=== PATIENT | male | born 1975 | race Caucasian/White ===

== ENCOUNTER → 2017-02-07 | Outpatient (CLI) | payer BC ==
--- NOTE | 2017-02-07 14:11 | CT ---
EXAMINATION TYPE: CT abdomen pelvis w con DATE OF EXAM: 02/07/2017 COMPARISON: NONE HISTORY: Abdomen pain and bloating CT DLP: 1771.8 mGycm CONTRAST: CT scan of the abdomen and pelvis is performed with Oral Contrast and with IV Contrast, patient injec fely with 100 mL of Omnipaque 300. FINDINGS: LUNG BASES-: No visible nodule. No infiltrate. LIVER/GB: No calcified gallstones. No space occupying hepatic lesion. Mild hepatic steatosis. Bili deniz tree is of normal caliber. PANCREAS: No inflammation. No distinct mass. SPLEEN: No splenic enlargement. No lesion seen. ADRENALS: No nodule. No thickening. KIDNEYS/BLADDER: No hydronephrosis. No nephrolithiasis. No disctinct renal mass. Urinary bladder g rossly unremarkable. BOWEL: Wall thickening of the right hemicolon may reflect colitis. The remainder of the colon is unre markable. Normal appendix. No free air or abscess. GENITAL ORGANS: No gross abnormality. LYMPH NODES: No greater than 1cm abdominal or pelvic lymph nodes are appreciated. AORTA: No significant abnormality. OSSEOUS STRUCTURES: No significant abnormality is seen. OTHER: No significant additional abnormality is seen. IMPRESSION: 1. Thickening right hemicolon may reflect colitis. Correlate clinically. 2. Mild hepatic steatosis.
== END | disposition home or self-care (01) ==
LOC: RADCTMAIN 11:58
PROVIDERS: ATTEND Internal Medicine
DX: K76.0 Fatty (change of) liver, not elsewhere classified (principal)
CPT/HCPCS: 74177; Q9967

== ENCOUNTER → 2018-02-27 | Outpatient (CLI) | payer BC ==
--- NOTE | 2018-02-27 15:54 | CONS ---
CONSULTATION Consultation note for chronic fatigue and sleepiness. PCP: Dr. Peterson. A 42-year-old male patient with known history of depression since age of 17, currently on a combination of Prozac and Abilify and Wellbutrin. The patient is coming in to be evaluated for chronic excessive fatigue and sleepiness and been going on for the past 10 to 15 years. He snores, not sure if he quits breathing. Does have a bed partner. No insomnia. 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 He works between 3:00 pm and 11:00 pm. He goes to bed around 2:00 am, wakes up at noon time and he is not refreshed. No substance abuse. No alcoholism. No history of any chronic illnesses such as diabetes or kidney disease. No history of hypothyroidism. He has no nocturia. No grinding of the teeth. No restlessness in lower extremities. No sleep paralysis. No hallucinations or cataplexy. No history of any motor vehicle accident because of feeling drowsy or sleepy. PAST MEDICAL HISTORY: Depression. SURGICAL HISTORY: Negative. DRUG ALLERGIES: Not known. OUTPATIENT MEDICATION: Includes Prozac, Wellbutrin and Abilify. SOCIAL HISTORY: Nonsmoker. No history of alcohol. No history of IV drugs. FAMILY HISTORY: Father has obstructive sleep apnea. REVIEW OF SYSTEMS: 12-point review of system was done. Positive findings are mentioned in history of present illness. PHYSICAL EXAMINATION: BP is 138/89, pulse 71, respirations 16, temperature 97.7, saturation 97% on room air. Weight is 225, height 5 feet 9 inches, Wheaton score of 12. BMI 33.2. Neck size 17.5 inches. GENERAL APPEARANCE: Calm, comfortable. HEAD: Atraumatic, normocephalic. NECK: Short, supple. Mallampati Class 1. There is no goiter or neck mass. LUNGS: Clear to auscultation. HEART: Sounds regular rhythm. Normal S1, S2. No S3. No murmurs. ABDOMEN: Soft, nontender. No organomegaly. EXTREMITIES: No edema. No cyanosis or clubbing. IMPRESSION: 1. Excessive fatigue with some degree of sleepiness. Wheaton score of 12. Unclear if this is a manifestation obstructive sleep apnea. Will do further investigation. 2. Chronic depression. PLAN: 1. Proceed with a polysomnogram. 2. Will discuss the results once available and will make further recommendations accordingly. MMODL / IJN: [id number] /
== END | disposition home or self-care (01) ==
LOC: SLEEP 11:26
PROVIDERS: ATTEND Internal Medicine Critical Care Medicine
DX: G47.9 Sleep disorder, unspecified (principal); R53.83 Other fatigue; F32.9 Major depressive disorder, single episode, unspecified; Z79.899 Other long term (current) drug therapy
CPT/HCPCS: 99211

== ENCOUNTER 2019-07-04 20:52 | Emergency (ER) | payer BC ==
[2019-07-04 20:56] VITALS: RESP 20; TEMP 98.8
--- NOTE | 2019-07-04 21:51 | ED ---
Abdominal Pain HPI - General Chief Complaint: Abdominal Pain Stated Complaint: Abd Pain Time Seen by Provider: 07/04/19 21:02 Source: patient Mode of arrival: ambulatory Limitations: no limitations - History of Present Illness Initial Comments: Patient is a 43-year-old male presenting to the emergency department with a chief complaint of abdominal pain. Patient reports his symptoms began about 3 weeks ago with on and off nausea vomiting and diarrhea. He states the abdominal pain is located in the epigastric and left upper quadrant region without any radiation. She reports the pain is not postprandial. He states that he went to an urgent care was given Pepcid for possible concern of acid reflux. Patient reports some improvement in symptoms although no resolution. Patient went to his primary care was scheduled to have an upper GI scope in the next month. Patient denies any night sweats fevers but does report chills. Denies urinary symptoms. Denies hematuria, hematochezia or melena. Denies hematemesis or hemoptysis. Denies cough chest pain shortness of breath. No history of abdominal surgeries. Patient reports eating late at night and drinks a lot of pop. - Related Data Previous Rx's Medication Instructions Recorded Omeprazole [PriLOSEC] 10 mg PO DAILY #30 capsule. 07/04/19 Allergies Allergy/AdvReac Type Severity Reaction Status Date / Time sulfamethoxazole Allergy Nausea & Verified 07/04/19 20:56 [From Bactrim] Vomiting & Diarrhea trimethoprim [From Bactrim] Allergy Nausea & Verified 07/04/19 20:56 Vomiting & Diarrhea Review of Systems ROS Statement: Those systems with pertinent positive or pertinent negative responses have been documented in the HPI. ROS Other: All systems not noted in ROS Statement are negative. Past Medical History Past Medical History: No Reported History History of Any Multi-Drug Resistant Organisms: None Reported Past Surgical History: No Surgical Hx Reported Past Psychological History: Anxiety, Depression Smoking Status: Current every day smoker Past Alcohol Use History: None Reported Past Drug Use History: Marijuana General Exam Limitations: no limitations General appearance: alert, in no apparent distress Head exam: Present: atraumatic, normocephalic, normal inspection Eye exam: Present: normal appearance, PERRL, EOMI Pupils: Present: normal accommodation ENT exam: Present: normal exam, normal oropharynx, mucous membranes moist, TM's normal bilaterally, normal external ear exam Neck exam: Present: normal inspection, full ROM Respiratory exam: Present: normal lung sounds bilaterally Cardiovascular Exam: Present: regular rate, normal rhythm, normal heart sounds GI/Abdominal exam: Present: soft, tenderness (Epigastric and left upper quad rant), normal bowel sounds. Absent: distended, guarding, rebound, rigid, mass, bruit Extremities exam: Present: normal inspection, full ROM Back exam: Present: normal inspection, full ROM. Absent: CVA tenderness (R), CVA tenderness (L) Neurological exam: Present: alert, oriented X3 Psychiatric exam: Present: normal affect, normal mood Skin exam: Present: warm, dry, intact, normal color Course Vital Signs 07/04/19 07/04/19 20:53 23:11 Temperature 98.8 F Pulse Rate 79 73 Respiratory 20 20 Rate Blood Pressure 139/90 145/97 O2 Sat by Pulse 98 99 Oximetry Medical Decision Making - Medical Decision Making Patient is a 43-year-old male presenting to the emergency department with a chief complaint of abdominal pain. His been having nausea vomiting and diarrhea on and off for about 2-3 weeks. Abdominal pain is also present in the epigastric left upper quadrant. On initial evaluation patient reports the pain has subsided from earlier today. On exam he does have some epigastric left upper quadrant tenderness. No CVA tenderness. No urinary symptoms. UA is unremarkable. CBC shows no signs of leukocytosis. CMP unremarkable. Patient was given fluids, Zofran and Protonix and Toradol. Reevaluation patient has improvement in his symptoms and at this point he only feels slight discomfort but no more pain. I suspect the patient has acid reflux causing his symptoms. Patient previously tried a 14 day course of [id number] omeprazole and states there was improvement in symptoms but they returned after he stopped taking the medication. Patient was given a prescription for 30 days of omeprazole. Patient also advised not to eat or drink late at night. He was also advised to avoid eating or drinking any acidic foods or drinks. Patient noted he has a upper GI scope was scheduled next month. Strict return parameters were thoroughly discussed with patient was understanding and agreeable. Patient advised to continue with his scheduled testing appointment. Case discussed with physician. - Lab Data Result diagrams: 07/04/19 21:46 07/04/19 21:46 Lab Results 12/12/19 12/12/19 12/12/19 Range/Units 21:46 21:46 21:46 WBC 10.0 (3.8-10.6) k/uL RBC 4.43 (4.30-5.90) m/uL Hgb 13.2 (13.0-17.5) gm/dL Hct 38.9 L (39.0-53.0) % MCV 87.9 (80.0-100.0) fL MCH 29.8 (25.0-35.0) pg MCHC 33.9 (31.0-37.0) g/dL RDW 12.6 (11.5-15.5) % Plt Count 210 (150-450) k/uL Neutrophils % 84 % Lymphocytes % 11 % Monocytes % 3 % Eosinophils % 1 % Basophils % 0 % Neutrophils # 8.4 H (1.3-7.7) k/uL Lymphocytes # 1.1 (1.0-4.8) k/uL Monocytes # 0.3 (0-1.0) k/uL Eosinophils # 0.1 (0-0.7) k/uL Basophils # 0.0 (0-0.2) k/uL Sodium 142 (137-145) mmol/L Potassium 4.1 (3.5-5.1) mmol/L Chloride 108 H (98-107) mmol/L Carbon Dioxide 23 (22-30) mmol/L Anion Gap 11 mmol/L BUN 15 (9-20) mg/dL Creatinine 1.05 (0.66-1.25) mg/dL Est GFR (CKD-EPI)AfAm >90 (>60 ml/min/1.73 sqM) Est GFR (CKD-EPI)NonAf 88 (>60 ml/min/1.73 sqM) Glucose 87 (74-99) mg/dL Calcium 10.3 H (8.4-10.2) mg/dL Total Bilirubin 0.5 (0.2-1.3) mg/dL AST 29 (17-59) U/L ALT 36 (4-49) U/L Alkaline Phosphatase 89 (38-126) U/L Total Protein 8.4 H (6.3-8.2) g/dL Albumin 5.3 H (3.5-5.0) g/dL Amylase 56 (30-110) U/L Lipase 161 (23-300) U/L Urine Color Yellow Urine Appearance Clear (Clear) Urine pH 6.0 (5.0-8.0) Ur Specific [place] 1.024 (1.001-1.035) Urine Protein 1+ H (Negative) Urine Glucose (UA) Negative (Negative) Urine Ketones 1+ H (Negative) Urine Blood Negative (Negative) Urine Nitrite Negative (Negative) Urine Bilirubin Negative (Negative) Urine Urobilinogen <2.0 (<2.0) mg/dL Ur Leukocyte Esterase Negative (Negative) Urine RBC 1 (0-5) /hpf Urine WBC 1 (0-5) /hpf Urine Mucus Many H (None) /hpf Urine Sperm Occasional H (None) /hpf Disposition Clinical Impression: Abdominal pain Disposition: HOME SELF-CARE Condition: Stable Instructions (If sedation given, give patient instructions): Abdominal Pain (ED) Additional Instructions: Please follow up with her primary care. Please go to your scheduled upper GI test. Avoid eating late at night. Please take prescribed medication as directed. Avoid eating acidic food. Prescriptions: Omeprazole [PriLOSEC] 10 mg PO DAILY #30 capsule.dr Is patient prescribed a controlled substance at d/c from ED?: No Referrals: Stuart Peterson MD [Primary Care Provider] - 1-2 days Time of Disposition: 23:04
[2019-07-04] MEDS: SODIUM CHLORIDE 0.9% 1,000 ML IV STA (21:53)
[2019-07-04 22:01] LABS: Basophils % (A) 0 %; Eosinophils # (A) 0.1 k/uL (0-0.7); Eosinophils % (A) 1 %; HCT 38.9 % (39.0-53.0); HGB 13.2 gm/dL (13.0-17.5); Lymphocytes # (A) 1.1 k/uL (1.0-4.8); Lymphocytes % (A) 11 %; MCH 29.8 pg (25.0-35.0); MCHC 33.9 g/dL (31.0-37.0); MCV 87.9 fL (80.0-100.0); Mean Platelet Volume 8.7; Monocytes # (A) 0.3 k/uL (0-1.0); Monocytes % (A) 3 %; Neutrophils # (A) 8.4 k/uL (1.3-7.7); Neutrophils % (A) 84 %; Platelet Count 210 k/uL (150-450); RBC 4.43 m/uL (4.30-5.90); RDW 12.6 % (11.5-15.5)
[2019-07-04 22:07] LABS: Appearance,Urine Clear (Clear); Bilirubin,Urine Negative (Negative); Blood,Urine Negative (Negative); Color,Urine Yellow; Glucose,Urine (UA) Negative (Negative); Ketones,Urine 1+ (Negative); Leukocyte Esterase,Urine Negative (Negative); Mucus,Urine Many /hpf; Nitrite,Urine Negative (Negative); Protein,Urine 1+ (Negative); RBC,Urine 1 /hpf (0-5); Specific Gravity,Urine 1.024 (1.001-1.035); Sperm,Urine Occasional /hpf; Urobilinogen,Urine <2.0 mg/dL (<2.0)
[2019-07-04 22:18] LABS: ALT 36 U/L (4-49); AST 29 U/L (17-59); African American GFR (CKD) >90 (>60 ml/min/1.73 sqM); Albumin 5.3 g/dL (3.5-5.0); Alkaline Phosphatase 89 U/L (38-126); Amylase 56 U/L (30-110); Anion Gap 11 mmol/L; Blood Urea Nitrogen 15 mg/dL (9-20); Calcium 10.3 mg/dL (8.4-10.2); Carbon Dioxide 23 mmol/L (22-30); Chloride 108 mmol/L (98-107); Glucose 87 mg/dL (74-99); Non-African American GFR(CKD) 88 (>60 ml/min/1.73 sqM); Potassium 4.1 mmol/L (3.5-5.1); Sodium 142 mmol/L (137-145); Total Bilirubin 0.5 mg/dL (0.2-1.3); Total Protein 8.4 g/dL (6.3-8.2)
[2019-07-04] MEDS: KETOROLAC 30 MG/ML 1 ML VIAL IVP STA (22:19)
[2019-07-04] MEDS: PANTOPRAZOLE 40 MG/10 ML VIAL IVP STA (22:19)
[2019-07-04] MEDS: DICYCLOMINE 10 MG/ML 2 ML AMP IM STA (22:19)
[2019-07-04 23:12] VITALS: BP 145/97; PULSE 73
== END 2019-07-04 23:14 | disposition home or self-care (01) ==
LOC: EC 20:52
DX: R10.13 Epigastric pain (principal); R10.12 Left upper quadrant pain; R11.2 Nausea with vomiting, unspecified; R19.7 Diarrhea, unspecified; R68.83 Chills (without fever); F17.200 Nicotine dependence, unspecified, uncomplicated; Z88.2 Allergy status to sulfonamides
CPT/HCPCS: 36415; 80053; 82150; 83690; 85025; 81001; 99284; 96374; 96375; 96361; 96372; J0500; J1885; C9113

== ENCOUNTER → 2021-05-27 | Outpatient (CLI) | payer OTHER ==
--- NOTE | 2021-05-27 12:52 | US ---
EXAMINATION TYPE: US abdomen complete DATE OF EXAM: 05/27/2021 COMPARISON: NONE CLINICAL HISTORY: 45-year-old male K21.9 GERD without esophagitis. Epigastric pain, nausea, GERD TECHNIQUE: Multiple sonographic images of the abdomen are obtained. FINDINGS: EXAM MEASUREMENTS: Liver Length: 15.9 cm Gallbladder Wall: 0.3 cm CBD: 0.5 cm Spleen: 12.1 cm Right Kidney: 11.1 x 4.6 x 4.7 cm Left Kidney: 11.5 x 5.5 x 5.4 cm Pancreas: Tail obscured by overlying bowel gas. Visualized portions within normal limits. Liver: Increased echogenicity. No focal lesion seen. Gallbladder: no evidence of stones Evidence for sonographic Wan's sign: no CBD: wnl as visualized Spleen: wnl Kidneys: No hydronephrosis. Upper IVC: wnl Abd Aorta: wnl IMPRESSION: 1. Mild to moderate hepatic steatosis. 2. No gallstones or biliary ductal dilatation.
== END | disposition home or self-care (01) ==
LOC: RADUSWWP 09:25
PROVIDERS: ATTEND Internal Medicine
DX: K76.0 Fatty (change of) liver, not elsewhere classified (principal); K21.9 Gastro-esophageal reflux disease without esophagitis
CPT/HCPCS: 76700

== ENCOUNTER → 2022-04-05 | Outpatient (CLI) | payer OTHER ==
[2022-04-05 15:41] LABS: Basophils # (A) 0.1 k/uL (0-0.2); Basophils % (A) 1 %; Eosinophils # (A) 0.3 k/uL (0-0.7); Eosinophils % (A) 3 %; HGB 14.6 gm/dL (13.0-17.5); Lymphocytes # (A) 1.6 k/uL (1.0-4.8); Lymphocytes % (A) 18 %; MCH 30.8 pg (25.0-35.0); MCHC 33.9 g/dL (31.0-37.0); Mean Platelet Volume 9.2; Monocytes # (A) 0.3 k/uL (0-1.0); Monocytes % (A) 4 %; Neutrophils # (A) 6.4 k/uL (1.3-7.7); Neutrophils % (A) 73 %; Platelet Count 250 k/uL (150-450); RBC 4.73 m/uL (4.30-5.90); RDW 13.5 % (11.5-15.5); WBC 8.7 k/uL (3.8-10.6)
[2022-04-06 05:20] LABS: ALT 21 U/L (10-49); AST 19 U/L (14-35); African American GFR (CKD) 93.5 (60.0-200.0); Albumin 5.1 g/dL (3.8-4.9); Albumin/Globulin Ratio 2.13 (1.60-3.17); Alkaline Phosphatase 96 U/L (41-126); BUN/Creat Ratio 12.36 Ratio (12.00-20.00); Blood Urea Nitrogen 13.6 mg/dL (9.0-27.0); Calcium 10.1 mg/dL (8.7-10.3); Carbon Dioxide 21.8 mmol/L (20.0-27.5); Chloride 103 mmol/L (96-109); Globulin 2.4 g/dL (1.6-3.3); Glucose 107 mg/dL (70-110); Non-African American GFR(CKD) 80.6 (60.0-200.0); Potassium 5.2 mmol/L (3.5-5.5); Sodium 141 mmol/L (135-145); Total Protein 7.5 g/dL (6.2-8.2)
[2022-04-06 05:21] LABS: Chol/HDL Ratio 7.53 Ratio
== END | disposition home or self-care (01) ==
LOC: LABWHC1 14:50
PROVIDERS: ATTEND Internal Medicine
DX: I10 Essential (primary) hypertension (principal); F32.A Depression, unspecified
CPT/HCPCS: 36415; 80053; 80061; 80178; 82088; 82533; 83721; 84244; 84443; 85025

== ENCOUNTER → 2023-09-14 | Outpatient (CLI) | payer OTHER ==
[2023-09-14 18:51] LABS: Basophils # (A) 0.07 X 10*3/uL (0.00-0.10); Basophils % (A) 0.9 %; Eosinophils # (A) 0.24 X 10*3/uL (0.04-0.35); HCT 39.1 % (39.6-50.0); HGB 13.3 g/dL (13.0-17.0); Lymphocytes # (A) 1.92 X 10*3/uL (0.90-5.00); Lymphocytes % (A) 23.6 %; MCH 30.6 pg (27.0-32.0); MCV 90.1 FL (80.0-97.0); Mean Platelet Volume 11.1 FL (9.5-12.2); Monocytes # (A) 0.59 X 10*3/uL (0.20-1.00); Monocytes % (A) 7.3 %; NRBC Per 100 WBC 0 X 10*3/uL (0.00-0.01); Neutrophils # (A) 5.28 X 10*3/uL (1.80-7.70); Neutrophils % (A) 64.8 %; Platelet Count 238 X 10*3/uL (140-440); RBC 4.34 X 10*6/uL (4.40-5.60); RDW 12.7 % (11.5-14.5); WBC 8.13 X 10*3/uL (4.50-10.00)
[2023-09-14 22:34] LABS: BUN/Creat Ratio 8.08 Ratio (12.00-20.00); Blood Urea Nitrogen 9.7 mg/dL (9.0-27.0); Chloride 106 mmol/L (96-109); Chol/HDL Ratio 5.85 Ratio; Glucose 95 mg/dL (70-110); Potassium 4.3 mmol/L (3.5-5.5); Sodium 142 mmol/L (135-145)
[2023-09-14 22:35] LABS: ALT 25 U/L (10-49); AST 20 U/L (14-35); Albumin 4.7 g/dL (3.8-4.9); Albumin/Globulin Ratio 2.04 Ratio (1.60-3.17); Alkaline Phosphatase 95 U/L (41-126); Calcium 9.8 mg/dL (8.7-10.3); Carbon Dioxide 21.6 mmol/L (21.6-31.8); Globulin 2.3 g/dL (1.6-3.3); Total Bilirubin 0.3 mg/dL (0.3-1.2)
== END | disposition home or self-care (01) ==
LOC: LABWHC1 14:15
PROVIDERS: ATTEND Internal Medicine
DX: Z00.00 Encounter for general adult medical examination without abnormal findings (principal); R05.9 Cough, unspecified; F43.10 Post-traumatic stress disorder, unspecified
CPT/HCPCS: 36415; 71046; 80053; 80061; 80178; 82306; 83036; 84443; 85025

== ENCOUNTER → 2023-11-14 | Outpatient (CLI) | payer OTHER ==
--- NOTE | 2023-11-16 09:38 | US ---
EXAMINATION TYPE: US kidneys/renal and bladder DATE OF EXAM: 11/14/2023 COMPARISON: US 05/27/2021, CT 02/07/2017 CLINICAL INDICATION: Male, 48 years old with history of R35.0 Increased Urinary Frequency; Increased urinary frequency. EXAM MEASUREMENTS: Right Kidney: 12.0 x 7.0 x 5.8 cm Left Kidney: 12.0 x 5.5 x 6.1 cm Right Kidney: No hydronephrosis or masses seen Left Kidney: Anechoic area seen laterally: 1.3 x 1.3 x 1.1 cm. *Hyperechoic focus seen laterally: 0.5 x 0.4 x 0.4 cm. Bladder: Appears wnl Bilateral Jets seen: Yes *Prominent prostate seen measuring 4.8 x 5.4 x 4.2 cm. IMPRESSION: 1. Prostatic hypertrophy. 2. No renal calculus or hydronephrosis. 3. Small simple cortical cyst left kidney. 4. 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
== END | disposition home or self-care (01) ==
LOC: RADUSWWP 16:11
PROVIDERS: ATTEND Internal Medicine
DX: N28.1 Cyst of kidney, acquired (principal); N40.1 Benign prostatic hyperplasia with lower urinary tract symptoms; N28.89 Other specified disorders of kidney and ureter; R35.0 Frequency of micturition
CPT/HCPCS: 76770

== ENCOUNTER 2024-08-02 12:06 | Observation (INO) | payer OTHER ==
[2024-08-02 12:12] VITALS: TEMP 98.7
[2024-08-02] MEDS: ONDANSETRON 4 MG/2 ML VIAL IVP STA (12:57)
[2024-08-02 13:02] LABS: Basophils % (A) 0 %; Eosinophils # (A) 0.1 k/uL (0-0.7); Eosinophils % (A) 1 %; HCT 41.2 % (39.0-53.0); HGB 14.1 gm/dL (13.0-17.5); Lymphocytes # (A) 2.1 k/uL (1.0-4.8); Lymphocytes % (A) 20 %; MCH 29.6 pg (25.0-35.0); MCHC 34.3 g/dL (31.0-37.0); MCV 86.3 fL (80.0-100.0); Mean Platelet Volume 8.3; Monocytes # (A) 0.5 k/uL (0-1.0); Monocytes % (A) 5 %; Neutrophils # (A) 7.5 k/uL (1.3-7.7); Neutrophils % (A) 73 %; Platelet Count 277 k/uL (150-450); RBC 4.78 m/uL (4.30-5.90); RDW 12.8 % (11.5-15.5); WBC 10.3 k/uL (3.8-10.6)
[2024-08-02 13:15] LABS: ALT 32 U/L (4-49); AST 26 U/L (17-59); African American GFR (CKD) 82 (>60 ml/min/1.73 sqM); Albumin 5.3 g/dL (3.5-5.0); Alkaline Phosphatase 91 U/L (38-126); Anion Gap 17 mmol/L; Blood Urea Nitrogen 17 mg/dL (9-20); Calcium 12.1 mg/dL (8.4-10.2); Carbon Dioxide 20 mmol/L (22-30); Chloride 105 mmol/L (98-107); Glucose 115 mg/dL (74-99); Lipase 117 U/L (23-300); Non-African American GFR(CKD) 71 (>60 ml/min/1.73 sqM); Potassium 3.7 mmol/L (3.5-5.1); Sodium 142 mmol/L (137-145); Total Bilirubin 0.7 mg/dL (0.2-1.3); Total Protein 8.4 g/dL (6.3-8.2)
[2024-08-02 13:23] LABS: NT-Pro-B-Type Natriuretic Pept 30 pg/mL
[2024-08-02 13:25] LABS: Partial Thromboplastin Time 22.6 sec (22.0-30.0); Prothrombin Time 11.1 sec (10.0-12.5)
--- NOTE | 2024-08-02 13:50 | XR ---
EXAMINATION TYPE: XR chest 2V DATE OF EXAM: 08/02/2024 1:36 PM COMPARISON: None CLINICAL INDICATION: Male, 49 years old with history of Chest Pain; [facility] TECHNIQUE: XR chest 2V Frontal and lateral views of the chest. FINDINGS: Lungs/Pleura: There is no evidence of pleural effusion, focal consolidation, or pneumothorax. Pulmonary vascularity: Unremarkable. Heart/mediastinum: Cardiomediastinal silhouette is unremarkable. Musculoskeletal: No acute osseous pathology. IMPRESSION: No acute cardiopulmonary disease/process. [facility], , 08/02/2024 1:48 PM
[2024-08-02] MEDS ORDERED: ONDANSETRON 4 MG/2 ML VIAL IVP PRN (15:31)
[2024-08-02] MEDS ORDERED: NALOXONE 0.4 MG/ML 1 ML VIAL IV PRN (15:31)
--- NOTE | 2024-08-02 15:31 | ED ---
Chest Pain HPI - General Chief Complaint: Chest Pain Stated Complaint: elevated blood pressure Time Seen by Provider: 08/02/24 12:13 Source: patient Mode of arrival: ambulatory Limitations: no limitations - History of Present Illness Initial Comments: 49-year-old male with past medical history of hypertension who presents to the emergency department reporting chest pain and high blood pressure. Patient states that he has uncontrolled high blood pressure. Used to follow with a primary care doctor however had a falling out and currently has no primary care at this time. He still has some of his amlodipine left. Reports that he was taking 5 mg twice a day but his blood pressure remains uncontrolled. He started developing some chest pressure this morning. He thought it was due to his elevated blood pressure. He did take his dose at 4 AM this morning, all 10 mg. He then went into an urgent care as he is out of this medication was hoping to get refill. He told them that he had chest pain and his blood pressure was high, they directed him to come into the emergency department. He denies personal history of cardiac disease. Does admit to family history of cardiac disease. Dad has had open heart surgery. He describes it as a pressure sensation. No ripping or tearing station to his back. No numbness, tingling or weakness in his extremities. Patient has had some nausea and diaphoresis. No shortness of breath. No other alleviating, precipitating roughing factors - Related Data Home Medications Medication Instructions Recorded Confirmed Calcium Carbonate [Tums] 1,000 mg PO QID PRN 08/02/24 08/02/24 amLODIPine [Norvasc] 10 mg PO DAILY 08/02/24 08/02/24 Allergies Allergy/AdvReac Type Severity Reaction Status Date / Time sulfamethoxazole AdvReac Nausea & Verified 08/02/24 14:32 [From Bactrim] Vomiting & Diarrhea & Knee Pain trimethoprim [From Bactrim] AdvReac Nausea & Verified 08/02/24 14:32 Vomiting & Diarrhea & Knee Pain Review of Systems ROS Statement: Those systems with pertinent positive or pertinent negative responses have been documented in the HPI. ROS Other: All systems not noted in ROS Statement are negative. Past Medical History Past Medical History: Hypertension History of Any Multi-Drug Resistant Organisms: None Reported Past Surgical History: No Surgical Hx Reported Past Psychological History: Anxiety, Depression Smoking Status: Vaper Past Alcohol Use History: None Reported Past Drug Use History: Marijuana General Exam Limitations: no limitations Course Vital Signs 08/02/24 08/02/24 08/02/24 12:09 12:46 14:35 Temperature 98.7 F Pulse Rate 110 H 93 93 Respiratory 20 16 16 Rate Blood Pressure 202/112 156/109 154/100 O2 Sat by Pulse 99 99 98 Oximetry Chest Pain MDM - MDM Was pt. sent in by a medical professional or institution (, [facility], [facility], urgent care, hospital, or care home...) When possible be specific @ -So fed up Did you speak to anyone other than the patient for history (EMS, parent, family, police, friend...)? What history was obtained from this source @ -[No] Did you review nursing and triage notes (agree or disagree)? Why? @ -[I reviewed and agree with nursing and triage notes] Were old charts reviewed (outside hosp., previous admission, EMS record, old EKG, old radiological studies, urgent care reports/EKG's, care home records)? Report findings @ -[No old charts were reviewed] Differential Diagnosis (chest pain, altered mental status, abdominal pain women, abdominal pain men, vaginal bleeding, weakness, fever, dyspnea, syncope, headache, dizziness, GI bleed, back pain, seizure, CVA, palpatations, mental health, musculoskeletal)? @ -[not applicable] EKG interpreted by me (3pts min.). @ -Yes and demonstrates sinus rhythm with a rate of 96. ME interval 140. QRS 108. QTc of 418. No acute ST segment elevations or depressions X-rays interpreted by me (1pt min.). @ -[None done] CT interpreted by me (1pt min.). @ -[None done] U/S interpreted by me (1pt. min.). @ -[None done] What testing was considered but not performed or refused? (CT, X-rays, U/S, labs)? Why? @ -[None] What meds were considered but not given or refused? Why? @ -[None] Did you discuss the management of the patient with other professionals (professionals i.e. [facility] Meyer, [facility], lab, RT, psych nurse, marriage and family social worker, pharmacists, teacher, tax revenue officer, outsole caser)? Give summary @ -[No] Was smoking cessation discussed for >3mins.? @ -[No] Was critical care preformed (if so, how long)? @ -[No] Were there social determinants of health that impacted care today? How? (Homelessness, low income, unemployed, alcoholism, drug addiction, transportation, low edu. Level, literacy, decrease access to med. care, long term, rehab)? @ -[No] Was there de-escalation of care discussed even if they declined (Discuss DNR or withdrawal of care, Hospice)? DNR status @ -[No] What co-morbidities impacted this encounter? (DM, HTN, Smoking, COPD, CAD, Cancer, CVA, ARF, Chemo, Hep., AIDS, mental health diagnosis, sleep apnea, morbid obesity)? @ -[None] Was patient admitted / discharged? Hospital course, mention meds given and route, prescriptions, significant lab abnormalities, going to OR and other pertinent info. @ -[hospital course] Undiagnosed new problem with uncertain prognosis? @ -[No] Drug Therapy requiring intensive monitoring for toxicity (Heparin, Nitro, Insulin, Cardizem)? @ -[No] Were any procedures done? @ -[No] Diagnosis/symptom? @ -[default] Acute, or Chronic, or Acute on Chronic? @ -[default] Uncomplicated (without systemic symptoms) or Complicated (systemic symptoms)? @ -[default] Side effects of treatment? @ -[No] Exacerbation, Progression, or Severe Exacerbation? @ -[No] Poses a threat to life or bodily function? How? (Chest pain, [place], [place], pneumonia, PE, COPD, DKA, ARF, appy, cholecystitis, CVA, Diverticulitis, Homicidal, Suicidal, threat to staff... and all critical care pts) @ -[No] Disposition Clinical Impression: Chest pain, Hypertension Disposition: ADMITTED IP TO THIS [facility] Condition: Stable Is patient prescribed a controlled substance at d/c from ED?: No Referrals: [facility] [NON-STAFF] - 1-2 days [facility] [NON-STAFF] - 1-2 days None,Stated [Primary Care Provider] - 1-2 days Forms: Area PCPs Time of Disposition: 15:31 Decision to Admit Reason: Admit from EC Decision Date: 08/02/24 Decision Time: 15:31
[2024-08-02] MEDS: ASPIRIN 81 MG PO STA (16:29)
[2024-08-02] MEDS: NITROGLYCERIN OINT 1 INCH/GM PACKET TOPICAL STA (16:34)
[2024-08-02 16:56] VITALS: RESP 18
[2024-08-02 16:58] VITALS: BP 160/98; PULSE 98
--- NOTE | 2024-08-06 10:44 | P.DS ---
Providers Date of admission: 08/02/24 15:32 Expected date of discharge: 08/04/24 Attending physician: Willie Erazo MD Consults: 08/02/24 15:31 Consult Physician Urgent Consulting Provider: [facility] Consult Reason/Comments: chest pain, possible acs Do you want consulting provider notified?: Yes Primary care physician: Stated None Hospital Course: Patient was not seen by internal medicine team, was only managed by ER Patient Condition at Discharge: Undetermined Plan - Discharge Summary New Discharge Prescriptions: No Action amLODIPine [Norvasc] 10 mg PO DAILY Calcium Carbonate [Tums] 1,000 mg PO QID PRN PRN Reason: Heartburn Discharge Medication List Calcium Carbonate [Tums] 1,000 mg PO QID PRN 08/02/24 [History] amLODIPine [Norvasc] 10 mg PO DAILY 08/02/24 [History] Follow up Appointment(s)/Referral(s): [facility] [NON-STAFF] - 1-2 days [facility] [NON-STAFF] - 1-2 days None,Stated [Primary Care Provider] - 1-2 days Discharge/Stand Alone Forms: Area PCPs Discharge Disposition: LEFT AGAINST MEDICAL ADVICE
== END 2024-08-02 17:55 | disposition left against medical advice (07) ==
LOC: EC 12:06 → 6NMEDSUR 15:32
PROVIDERS: ADMIT Internal Medicine; ATTEND Internal Medicine
DX: R07.89 Other chest pain (principal); I10 Essential (primary) hypertension; R11.0 Nausea; R61 Generalized hyperhidrosis; F17.290 Nicotine dependence, other tobacco product, uncomplicated; Z79.899 Other long term (current) drug therapy; Z88.1 Allergy status to other antibiotic agents; Z88.2 Allergy status to sulfonamides; Z53.29 Procedure and treatment not carried out because of patient's decision for other reasons; Z82.49 Family history of ischemic heart disease and other diseases of the circulatory system
CPT/HCPCS: 96374; 99285; 36415; 93005; 83880; 80053; 84443; 83690; 83735; 84484; 85025; 85610; 85730; 71046; G0378; J2405